=== PATIENT | male | born 1965 | race Caucasian/White ===

== ENCOUNTER 2016-08-18 03:07 | Emergency (ER) | payer OTHER, SELFPAY ==
[~2016-08-18] VITALS: Ht 180.3 cm; Wt 127.0 kg
[2016-08-18] MEDS ORDERED: PRINIVIL5 MG PO (04:00)
[2016-08-18] MEDS ORDERED: ULTRAM50 MG PO (04:01)
== END 2016-08-18 03:55 | disposition short-term general hospital (02) ==
LOC: ER 03:07
DX: G25.81 Restless legs syndrome (principal); G47.00 Insomnia, unspecified; I10 Essential (primary) hypertension; M19.90 Unspecified osteoarthritis, unspecified site; E11.9 Type 2 diabetes mellitus without complications